=== PATIENT | male | born 1995 | race Two or more races ===

== ENCOUNTER → 2020-12-14 | Outpatient (REF) ==
[2020-12-15 06:08] LABS: RUBEOLA IgG ANTIBODY 57.2 AU/mL (Immune >16.4)
== END ==
LOC: M LAB 09:57
PROVIDERS: ATTEND Nurse Practitioner Adult Health
DX: Z00.00 Encounter for general adult medical examination without abnormal findings (principal)

== ENCOUNTER → 2021-12-09 | Outpatient (REF) | LOC: M LABSMTC 13:08 | PROVIDERS: ATTEND Pediatrics | DX: Z20.822 Contact with and (suspected) exposure to COVID-19 (principal) ==